=== PATIENT | male | born 1985 | race Hispanic/Latino ===

== ENCOUNTER 2024-07-15 14:13 | Emergency (ER) | payer SELFPAY ==
[~2024-07-15] VITALS: Ht 177.8 cm; Wt 117.9 kg
--- NOTE | 2024-07-15 14:58 | HMCIMG ---
CT HEAD/BRAIN W/O CONTRAST HISTORY: Status post seizures COMPARISON: None TECHNIQUE: Multiple sequential axial images of the head were obtained from the base of the skull through vertex. Patient was not given contrast through intravenous route. FINDINGS: The ventricles and extraventricular CSF spaces are nondilated for patient's age. There is no midline shift, mass effect or herniation. No acute intracranial bleed is seen. There are right maxillary and right sphenoid sinus polyps versus mucus retention cyst. Bilateral ethmoid sinus disease is seen. IMPRESSION: 1. No acute intracranial bleed is seen. CT was performed with one or more following dose reduction techniques: automated exposure control, adjustment of the mA and kv according to patient's size, or use of a iterative reconstruction technique.
--- NOTE | 2024-07-15 15:05 | EKG ---
[facility] Test Date: 2024-07-15 Test Time: 15:03:11 Pat Name: ZACHARY MARTINEZ Department: ED Room: Gender: M Rock Cutter: [facility] : 1985 Requested By: ALEXY SAMUEL Order Number: [id number] Reading MD: Michaela Rogers Measurements Intervals [place] Rate: 82 P: 58 NM: 161 QRS: 7 QRSD: 104 T: 31 QT: 373 QTc: 435 Interpretive Statements Sinus rhythm No previous ECG available for comparison Electronically Signed On 07-16-2024 08:17:25 PROSTHETICS ASSISTANT by Michaela Rogers Please click the below link to view image of tracing.
[2024-07-15] MEDS: 0.9%NACL 1000ML 1,000 ML IV ONE (15:09)
[2024-07-15 15:21] LABS: BASOPHILS # (AUTO) 0.03 K/uL (0.00-0.20); BASOPHILS % (AUTO) 0.3 % (0.0-5.0); EOSINOPHILS # (AUTO) 0.07 K/uL (0.00-0.70); EOSINOPHILS % (AUTO) 0.7 % (0.0-8.0); HEMATOCRIT 41.4 % (42-54); IMMATURE GRANULOCYTE ABSOLUTE 0.06 K/uL (0-1); LYMPHOCYTES # (AUTO) 2.3 K/uL (1.0-4.8); LYMPHOCYTES % (AUTO) 23.3 % (21.0-51.0); MEAN CORPUSCULAR HEMOGLOBIN 29.2 pg (27.0-33.0); MEAN CORPUSCULAR HGB CONC 34.1 g/dL (32.0-36.0); MEAN CORPUSCULAR VOLUME 85.7 fL (79-99); MONOCYTES # (AUTO) 0.7 K/uL (0.1-1.0); MONOCYTES % (AUTO) 6.9 % (3.0-13.0); NEUTROPHILS # (AUTO) 6.8 K/uL (1.8-7.7); NEUTROPHILS % (AUTO) 68.2 % (40.0-77.0); PLATELET COUNT (AUTO) 312 K/uL (130-400); RED BLOOD CELL COUNT(AUTO) 4.83 MIL/uL (4.50-6.20); RED CELL DISTRIBUTION WIDTH 12.8 % (11.0-15.5); WHITE BLOOD COUNT (AUTO) 9.9 K/uL (4.8-10.8)
[2024-07-15 15:39] LABS: CREATININE 0.8 mg/dL (0.5-1.3); POTASSIUM 3.8 mmol/L (3.5-5.1)
[2024-07-15 15:43] LABS: ADD UA MICROSCOPIC YES; APPEARANCE,URINE CLEAR (CLEAR); BILIRUBIN,URINE NEGATIVE (NEGATIVE); COLOR,URINE LIGHT-YELLOW (YELLOW); GLUCOSE, URINE (UA) NEGATIVE (NEGATIVE); KETONES,URINE NEGATIVE (NEGATIVE); LEUKOCYTE ESTERASE ,URINE NEGATIVE Leu/uL (NEGATIVE); NITRATE,URINE NEGATIVE (NEGATIVE); OCCULT BLOOD,URINE NEGATIVE (NEGATIVE); PH,URINE 6.5 (5.0-8.0); PROTEIN,URINE 50 mg/dL (NEGATIVE); UROBILINOGEN,URINE 0.2 mg/dL (0.2-1.0)
[2024-07-15 15:44] LABS: MAGNESIUM 1.8 mg/dL (1.80-2.40)
[2024-07-15 15:44] LABS: RBC,URINE 0-1 /HPF (0-1); SQUAMOUS EPITHELIAL CELL,UR RARE /HPF (0-2); WBC,URINE 0-1 /HPF (0-1)
--- NOTE | 2024-07-15 16:16 | NUR ---
HAVING SEIZURE ACTIVITY, PLACED ON HIS RIGHT SIDE, ATIVAN GIVEN NOW IVP PER DR. SILVA.
--- NOTE | 2024-07-15 16:17 | ERN ---
ED Note History of Present Illness Stated Complaint: POSSIBLE SEIZURE Chief Complaint: Seizure Time Seen by MD: 14:18 Time Seen by Midlevel: 14:18 Dictation: Patient is a 39-year-old male with a past medical history of epilepsy since he was 13 years old presenting to the emergency department for evaluation following a seizure that occurred at work. 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 The history was obtained by the co-worker who presented with the patient. Later on during the visit reported to the emergency department and gave us more information. The patient is currently on Dilantin and phenytoin. The last time he saw neurologist was over 10 years ago. According to the patient had a tonic-clonic seizure at approximately five a.m. before going work. This seizure lasted approximately 2 minutes. Patient was postictal for a brief amount of time but later decided to report to work. At approximately 1:00 p.m. the patient had his 2nd seizure. On arrival patient is slightly postictal but is able to follow simple questions and answer simple commands. Allergies: Coded Allergies: No Known Drug Allergies (Unverified Allergy, Unknown, 07/15/24) Past Medical History Past Medical History: Diabetes-Type II, Seizure Surgical History: None Review of System Dictation Constitutional: Negative for fever,chills, and weight loss Eyes: Negative for injury, pain,redness, and discharge ENT: Negative for injury,pain or swelling Cardiovascular: Negative for chest pain, palpitations, and edema Respiratory: Negative for shortness of breath, cough, and wheezing, Abdomen/GI: Negative for abdominal pain, nausea, vomiting, diarrhea, and constipation Back: Negative for injury and pain : Negative for injury, bleeding and discharge MS/Extremity: Negative for injury and deformity Skin: Negative for rash, and discoloration Neuro: Positive for seizure Negative for headache, weakness, numbness, tingling Psych: Negative for suicide ideation, homicidal ideation, and hallucinations Initial Vital Sign VS Vital Signs Date Time Temp Pulse Resp B/P (MAP) Pulse Ox O2 Delivery O2 Flow Rate FiO2 07/15/24 14:16 98.6 100 20 170/100 99 Room Air 0 07/15/24 15:09 21 Physical Exam Dictation General: awake, alert, NAD Head/Face: Normocephalic, atraumatic Eyes: PERRL, EOMI, vision at baseline ENT: oral cavity clear, TMs clear, no signs of infection Neck: Trachea midline, supple, no nuchal rigidity Cardiovascular: RRR, normal S1/S2, No MRGs, no JVD Respiratory: CTAB, no respiratory distress, No rales or wheezes Abdomen: Soft, non-tender, non-distended, normal bowel sounds, no guarding or rebound. Skin: Warm, dry, normal turgor, no rash MS/Extremity: Pulses equal, no cyanosis, neurovascular intact, FROM Neuro: COAx4, GCS 15, strength 5/5, CN 2-12 intact, normal cerebellar exam, normal gait, Psych: Normal behavior, mood, and affect normal Results (Laboratory/Radiology) Laboratory/Radiology Laboratory Tests Test 07/15/24 15:06 07/15/24 15:35 White Blood Count 9.9 K/uL (4.8-10.8) Red Blood Count 4.83 MIL/uL (4.50-6.20) Hemoglobin 14.1 g/dL (14.0-18.0) Hematocrit 41.4 % (42-54) L Mean Corpuscular Volume 85.7 fL (79-99) Mean Corpuscular Hemoglobin 29.2 pg (27.0-33.0) Mean Corpuscular Hemoglobin Concent 34.1 g/dL (32.0-36.0) Red Cell Distribution Width 12.8 % (11.0-15.5) Platelet Count 312 K/uL (130-400) Mean Platelet Volume 9.0 fL (7.5-10.5) Immature Granulocyte % (Auto) 0.6 % (0-1) Neutrophils (%) (Auto) 68.2 % (40.0-77.0) Lymphocytes (%) (Auto) 23.3 % (21.0-51.0) Monocytes (%) (Auto) 6.9 % (3.0-13.0) Eosinophils (%) (Auto) 0.7 % (0.0-8.0) Basophils (%) (Auto) 0.3 % (0.0-5.0) Neutrophils # (Auto) 6.8 K/uL (1.8-7.7) Lymphocytes # (Auto) 2.3 K/uL (1.0-4.8) Monocytes # (Auto) 0.7 K/uL (0.1-1.0) Eosinophils # (Auto) 0.07 K/uL (0.00-0.70) Basophils # (Auto) 0.03 K/uL (0.00-0.20) Absolute Immature Granulocyte (auto 0.06 K/uL (0-1) Nucleated Red Blood Cells 0.0 % (0.0-0.19) Sodium Level 141 mmol/L (136-145) Potassium Level 3.8 mmol/L (3.5-5.1) Chloride Level 103 mmol/L (101-111) Carbon Dioxide Level 31 mmol/L (21-32) Blood Urea Nitrogen 8 mg/dL (7-18) Creatinine 0.8 mg/dL (0.5-1.3) Glomerular Filtration Rate Calc 115 mL/min (>90) Random Glucose 159 mg/dL (70-105) H Total Calcium 8.6 mg/dL (8.5-10.1) Magnesium Level 1.80 mg/dL (1.80-2.40) Total Creatine Kinase 171 U/L (21-232) Phenytoin (Dilantin) Level 5.4 mcg/mL (10.0-20.0) L Urine Color LIGHT-YELLOW (YELLOW) Urine Appearance CLEAR (CLEAR) Urine pH 6.5 (5.0-8.0) Urine Specific [place] 1.014 (1.001-1.031) Urine Protein 50 mg/dL (NEGATIVE) H Urine Glucose (UA) NEGATIVE mg/dL (NEGATIVE) Urine Ketones NEGATIVE mg/dL (NEGATIVE) Urine Occult Blood NEGATIVE (NEGATIVE) Urine Nitrate NEGATIVE (NEGATIVE) Urine Bilirubin NEGATIVE mg/dL (NEGATIVE) Urine Urobilinogen 0.2 mg/dL (0.2-1.0) Urine Leukocyte Esterase NEGATIVE Sal[place]/uL Urine RBC 0-1 /HPF (0-1) Urine WBC 0-1 /HPF (0-1) Urine Squamous Epithelial Cells RARE /HPF (0-2) Urine Bacteria None /HPF (None Seen) [place] [id number] [place] [id number] IMAGING REPORT Signed PATIENT: ZACHARY MARTINEZ MR#: [id number] : 1985 SEX: M AGE: 39 LOCATION: ED ORDER [id number] STATUS: REG ER REPORT#: [id number] SERVICE 1638 REASON: SOB ORDERING PHYSICIAN: ALEXY LOW PROCEDURE: CXR1VW - CHEST 1VW CHEST 1VW HISTORY: Shortness of breath COMPARISON: None FINDINGS: A frontal projection of the chest was obtained. No acute pulmonary infiltrates is seen. The heart is borderline enlarged. Prominent interstitial markings are seen. Mild degenerative changes are seen. No evidence of aortic calcification is seen. IMPRESSION: 1. No acute pulmonary infiltrate is seen. DICTATED BY: MUNIR MORAN MD DATE: 07/15/241826 ELECTRONICALLY SIGNED BY: MUNIR MORAN MD DATE: 07/15/241831 [place] [address] IMAGING REPORT Signed PATIENT: ZACHARY MARTINEZ MR#: [id number] : 1985 SEX: M AGE: 39 LOCATION: [facility] ORDER [id number] STATUS: REG ER REPORT#: [id number] SERVICE 142 REASON: seizure ORDERING PHYSICIAN: ALEXY LOW PROCEDURE: HEAD WO - CT HEAD/BRAIN W/O CONTRAST CT HEAD/BRAIN W/O CONTRAST HISTORY: Status post seizures COMPARISON: None TECHNIQUE: Multiple sequential axial images of the head were obtained from the base of the skull through vertex. Patient was not given contrast through intravenous route. FINDINGS: The ventricles and extraventricular CSF spaces are nondilated for patient's age. There is no midline shift, mass effect or herniation. No acute intracranial bleed is seen. There are right maxillary and right sphenoid sinus polyps versus mucus retention cyst. Bilateral ethmoid sinus disease is seen. IMPRESSION: 1. No acute intracranial bleed is seen. CT was performed with one or more following dose reduction techniques: automated exposure control, adjustment of the mA and kv according to patient's size, or use of a iterative reconstruction technique. DICTATED BY: MUNIR MORAN MD DATE: 07/15/24 [id number] ELECTRONICALLY SIGNED BY: MUNIR MORAN MD DATE: 07/15/24 1458 Labs Reviewed?: Yes EKG Comment: EKG 07/15/2024 time 3:03 p.m. ventricular rate 82, DE 161, QRS D 104, QT 373. Sinus rhythm. No STEMI ED Course ED Course Orders Procedure Category Date Status Time 12 Lead Ekg Tracing- EKG 07/15/24 Complete Technical 14:20 Cbc With Differential LAB 07/15/24 Complete 14:20 Basic Metabolic Panel LAB 07/15/24 Complete 14:20 Creatine Kinase, Total LAB 07/15/24 Complete 14:20 Magnesium LAB 07/15/24 Complete 14:20 Urinalysis Profile LAB 07/15/24 Complete 14:20 Ct Head/Brain W/O CT 07/15/24 Resulted Contrast 14:20 0.9%Nacl 1000ml (Ns PHA 07/15/24 Complete 1000ml) 14:30 Phenytoin (Ector) In LAB 07/15/24 Complete House 14:24 Lorazepam 2 Mg PHA 07/15/24 Complete (Ativan) 16:14 Lorazepam 2 Mg PHA 07/15/24 Complete (Ativan) 16:30 Drug Screen Urine LAB 07/15/24 Logged 16:14 Levetiracetam 500 PHA 07/15/24 In Process Mg/5 Ml Sd V (Keppra 5 16:30 Levetiracetam 500 PHA 07/15/24 Complete Mg/5 Ml Sd V (Keppra 5 16:21 Chest 1vw RAD 07/15/24 Resulted 16:38 Current Medications Medications (Trade) Dose Ordered Sig/Cathie Route PRN Reason Start Time Stop Time Status Last Admin Dose Admin Levetiracetam (kepPRA 500 MG/5 ML SD VIAL) 500 mg STK-MED ONCE IV 07/15/24 16:21 07/15/24 16:22 DC Levetiracetam (kepPRA 500 MG/5 ML SD VIAL) 1,000 mg ONCE IV 07/15/24 16:30 08/14/24 16:29 07/15/24 16:22 Lorazepam (AtiVAN) 2 mg ONCE ONCE IVP 07/15/24 16:30 07/15/24 16:31 DC 07/15/24 16:20 Lorazepam (AtiVAN) 2 mg STK-MED ONCE .ROUTE 07/15/24 16:14 07/15/24 16:14 DC Sodium Chloride 1,000 ml @ 0 mls/hr ONCE ONCE IV 07/15/24 14:30 07/15/24 14:31 DC 07/15/24 15:09 Vital Signs Date Time Temp Pulse Resp B/P (MAP) Pulse Ox O2 Delivery O2 Flow Rate FiO2 07/15/24 21:19 98.8 76 18 126/78 97 Room Air* 0 21 07/15/24 18:15 82 16 127/69 98 Room Air* 0 21 07/15/24 17:13 91 16 128/80 98 Room Air* 0 21 07/15/24 15:09 76 16 128/81 96 Room Air* 0 21 07/15/24 14:16 98.6 100 20 170/100 99 Room Air 0 Medical Decision Making MDM MDM: Patient is a 39-year-old male with a past medical history of epilepsy since he was 13 years old presenting to the emergency department for evaluation following a seizure that occurred at work. 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 The history was obtained by the co-worker who presented with the patient. Later on during the visit reported to the emergency department and gave us more information. The patient is currently on Dilantin and phenytoin. The last time he saw neurologist was over 10 years ago. According to the patient had a tonic-clonic seizure at approximately five a.m. before going work. This seizure lasted approximately 2 minutes. Patient was postictal for a brief amount of time but later decided to report to work. At approximately 1:00 p.m. the patient had his 2nd seizure. On arrival patient is slightly postictal but is able to follow simple questions and answer simple commands. After patient was placed in room he developed another tonic-clonic seizure lasting approximately 1 minute. He was given2 mg of Ativan IV with resolution of seizure. He was put on a non-rebreather mask. His CBC and chemistries are stable. His CT scan of the head does not show any acute intracranial bleed or any other acute abnormality. Given that the patient had three seizures today we will transfer for Neurology evaluation. Differential diagnosis: Breakthrough seizure, urinary tract infection, Rationale: Tests considered and ordered secondary to shared decision making include: Previous outside records reviewed: Old ER visits. Risk of complication and/or morbidity or mortality of patient management: None Medications-Per medication reconciliation Need for hospitalization: Patient does meet criteria for hospitalization. Need for emergency major/minor surgery: No There are no social concerns with this patient. Prescription drug management Prescriptions will include symptomatic care Patient's prior external medical records from other ER visits were reviewed by me as indicated. Prior testing and results from previous visits were reviewed. Prior tests were taken into account with medical decision making and resource utilization, independent historian/historians were used to obtain complete me dical history. I independently interpreted the test that were performed, results were reviewed by me and considered findings on radiology if ordered. Medical management and examination interpretation discussions were had by me with other qualified healthcare professionals as indicated for the patient's care. DX & DISP Disposition: Transfer (ER to ER transfer) Departure Impression: Primary Impression: Breakthrough seizure Additional Impression: History of epilepsy Condition: Stable Referrals: SELF,REFERRAL (PCP) I have reviewed, & agreed with my scribe's, documentation. (Entered by remoceancorey Cash, acting as a scribe for RAZIA Low) I performed this substantive portion of this visit. I have reviewed and personally made and approve the management plan that is documented in the note by myself or the BAYLEE. I acknowledge full responsibility for the patient's management plan. I personally scribed for ALEXY LOW (DOMO) on 07/15/24 at 16:17. Electronically submitted by [employer]legro [facility]althe[facility] ([employer]). I personally scribed for ALEXY LOW ([email or web address]) on 07/15/24 at 16:18. Electronically submitted by [employer] Shreya ([employer]). I personally scribed for ALEXY LOW ([email or web address]) on 07/15/24 at 16:42. Electronically submitted by [employer] Shreya ([employer]). ALEXY LOW Jul 15, 2024 16:17
[2024-07-15] MEDS: LORazepam 2 MG/ML 1 ML VIAL ONE (16:20)
[2024-07-15] MEDS: LORazepam 2 MG/ML 1 ML VIAL IVP ONE (16:20)
[2024-07-15] MEDS: leveTIRACEtam 500 MG/5 ML SD VIAL IV SCH (16:22)
[2024-07-15] MEDS: leveTIRACEtam 500 MG/5 ML SD VIAL IV ONE (16:25)
--- NOTE | 2024-07-15 17:12 | NUR ---
SEIZURE PRECAUTIONS IN PLACE, PADDED SIDES
--- NOTE | 2024-07-15 18:16 | NUR ---
PT RESTING IN BED, NO SEIZURE ACTIVITY SEEN SINCE LAST EPISODE. PT REMAINS LETHARGIC S/P ATIVAN ADMINISTRATION AND SEIZURE ACTIVITY EARLIER. BREATHING WELL.
--- NOTE | 2024-07-15 18:27 | NUR ---
PT NOW AWAKE, ALERT AND ORIENTED TO SITUATION, AT BEDSIDE.
--- NOTE | 2024-07-15 18:32 | HMCIMG ---
CHEST 1VW HISTORY: Shortness of breath COMPARISON: None FINDINGS: A frontal projection of the chest was obtained. No acute pulmonary infiltrates is seen. The heart is borderline enlarged. Prominent interstitial markings are seen. Mild degenerative changes are seen. No evidence of aortic calcification is seen. IMPRESSION: 1. No acute pulmonary infiltrate is seen.
--- NOTE | 2024-07-15 20:34 | NUR ---
TRANSFER: CALL PLACED TO [facility] TRANSF[facility]; TRANSFER INITIATED FOR NEUROLOGY SERVICES FOR DX: BREAK THROUGH SEIZURES.
--- NOTE | 2024-07-15 20:47 | NUR ---
TRANSFER: CALL RECEIVED FROM [facility] TRANSFER [facility]; TRANSFER DENIED [facility] D/T NOT HAVING NEUROLOGY SERVICES; RECOMMENDED TO TRY AGAIN IN AM. ALEXY SAMUEL NP SPOKED WITH PATIENT AND FAMILY AND THEY REQUESTED TO TRANSFER TO [facility].
--- NOTE | 2024-07-15 21:08 | NUR ---
TRANSFER: CALL PLACED TO [facility] TRANSF[facility]; TRANSFER INITIATED FOR NEUROLOGY SERVICES AND PATIENT REQUESTING [facility].
--- NOTE | 2024-07-15 21:18 | NUR ---
TRANSFER: PATIENT ACCEPTED TO [facility]. DR. NICA HERNANDEZ AT 2117; ADMIN APPROVAL, KATHY YOST AT 2117. PATIENT IS AUTO-ACCEPTED TO R ER.
--- NOTE | 2024-07-15 21:58 | NUR ---
TRANSPORT: [facility] CALLED FOR TRANSPORT TO [facility].
[2024-07-15 22:08] LABS: AMPHET/METH SCREEN,URINE NEGATIVE (NEGATIVE); BARBITURATE SCREEN, URINE NEGATIVE (NEGATIVE); BENZODIAZEPINES SCREEN,URINE NEGATIVE (NEGATIVE); CANNABINOID SCREEN,URINE NEGATIVE (NEGATIVE); COCAINE SCREEN,URINE NEGATIVE (NEGATIVE); OPIATE SCREEN,URINE NEGATIVE (NEGATIVE); PHENCYCLIDINE SCREEN,URINE NEGATIVE (NEGATIVE)
[2024-07-15 22:40] VITALS: BP 121/69; PULSE 78; RESP 18; TEMP 98.6; O2SAT 95
--- NOTE | 2024-07-15 22:42 | NUR ---
PATIENT LEAVING VIA EMS, IS IN NO DISTRESS AT THIS TIME
--- NOTE | 2024-07-15 22:46 | NUR ---
REPORT GIVEN TO MIR MERRITT FROM [facility]
== END 2024-07-15 22:42 | disposition short-term general hospital (02) ==
LOC: EDH 14:13
DX: G40.909 Epilepsy, unspecified, not intractable, without status epilepticus (principal); E11.9 Type 2 diabetes mellitus without complications
CPT/HCPCS: 99285; 96365; 70450; 71045; 96366; 96361; 96375; 82550; 80185; 83735; 80048; 80305; 85025; 81001; 36415; 93005; J1953; J7030; J2060